=== PATIENT | female | born 1970 | race Caucasian/White ===

== ENCOUNTER 2019-06-18 06:55 | Day surgery (SDC) | payer BC ==
[2019-06-18] MEDS ORDERED: Lactated Ringers 1,000 ML IV SCH (07:30)
[2019-06-18] MEDS ORDERED: Propofol 200 MG/20 ML SDV ONE (07:49)
[2019-06-18] MEDS ORDERED: Midazolam 1 MG/ML 2 ML SDV ONE (07:50)
[2019-06-18] MEDS ORDERED: fentaNYL 100 MCG/2 ML SDV ONE (07:50)
--- NOTE | 2019-06-18 15:25 | OR ---
DATE OF PROCEDURE: 06/18/2019 PREOPERATIVE DIAGNOSIS: Colon cancer screening. POSTOPERATIVE DIAGNOSIS: Diverticulosis. PROCEDURE: Colonoscopy to the cecum. SURGEON: Chavez Laboy MD ANESTHESIA: IV anesthesia with monitored anesthesia care. INDICATION: This 49-year-old white female is referred for a colonoscopy for colon cancer screening. This is her first colonoscopic exam. I counseled her for the procedure including risks and alternatives, and she gave her informed consent to proceed. DESCRIPTION OF PROCEDURE: The patient was placed in the left lateral decubitus position. IV anesthesia was administered by the Anesthesia Service. Time-out was held. A rectal exam was performed, which was unremarkable. The flexible video Olympus colonoscope was introduced through her anus, up her rectum and out her colon all way to the cecum. Once the cecum was reached, the scope was slowly withdrawn examining the mucosa throughout. No mucosal abnormalities were noted until we reached the sigmoid colon. Here, we saw a single shallow diverticulum. There was no bleeding or inflammation associated with it. The scope was withdrawn further with no other lesions noted. The scope would not retroflex in the rectum. The scope was removed. She tolerated the procedure well. Repeat colonoscopy in 10 years or earlier p.erica Laboy MD /[id number] MTDNancy
== END 2019-06-18 10:00 | disposition home or self-care (01) ==
LOC: JP.SDS 06:55
PROVIDERS: ATTEND Surgery
DX: Z12.11 Encounter for screening for malignant neoplasm of colon (principal); K57.30 Diverticulosis of large intestine without perforation or abscess without bleeding; G47.00 Insomnia, unspecified
CPT/HCPCS: 45378; J2250; J2704; J3010; J7120

== ENCOUNTER 2021-06-25 07:54 | Day surgery (SDC) | payer OTHER ==
[~2021-06-25 07:54] MED LIST: Midazolam 1 MG/ML 2 ML SDV ONE; Propofol 200 MG/20 ML SDV ONE; fentaNYL 100 MCG/2 ML SDV ONE
[2021-06-25] MEDS ORDERED: Sodium Chloride 0.9% 1,000 ML IV SCH (08:30)
[2021-06-25] MEDS ORDERED: Lidocaine 1% w/EPINEPHrine 50 ML, Sodium Bicarbonate 5 MEQ in Sodium Chloride 0.9% 950 ML INJECT ONE (09:00)
[2021-06-25] MEDS ORDERED: Sodium Tetradecyl Sulfate 1% 20 MG/2 ML SDV ONE (09:02)
[2021-06-25] MEDS ORDERED: Lidocaine 1% with EPINEPHrine 1:100,000 50 ML MDV ONE ×2 (09:03→09:06)
[2021-06-25] MEDS ORDERED: Sodium Chloride 0.9% 10 ML ONE (09:03)
[2021-06-25] MEDS ORDERED: Propofol 200 MG/20 ML SDV ONE (09:35)
[2021-06-25] MEDS ORDERED: Sodium Chloride 0.9% 10 ML SDV ONE (09:45)
[2021-06-25] MEDS ORDERED: Lactated Ringers 1,000 ML ONE (09:47)
--- NOTE | 2021-06-27 21:45 | OR ---
DATE OF PROCEDURE: 06/25/2021 SURGEON: Amol Diaz MD PROCEDURES: 1. Radiofrequency ablation, left greater saphenous vein. 2. Sclerotherapy, left leg, multiple. 3. Sclerotherapy, right leg, multiple. 4. Compression wrap, right leg ([id number]). COMPLICATIONS: None. PROJ ENGINEER: None. ANESTHESIA: MAC. PREOPERATIVE DIAGNOSIS: Venous insufficiency with inflammation and pain. POSTOPERATIVE DIAGNOSIS: Venous insufficiency with inflammation and pain. RISKS: Risks, benefits, alternatives, and limitations including, but not limited to, infection, bleeding, DVT formation, chronic wounds, pain, pigmentation, and other risks not listed here were explained to the patient and they wished to proceed. PROCEDURE IN DETAIL: The patient was placed in the supine position. The right great GSV was accessed at the level around the ankle. This was accessed using a 21-gauge needle, then exchanged for a 35,000th wire, then exchanged for a 7-N[place] sheath. This could only be advanced few centimeters due to tortuosity, which was unforeseen. This was then moved up approximately 10 cm and that process was repeated. This was advanced with a probe to 3 cm from the saphenofemoral junction. Tumescent fluid injected in a 1 cm jacket around this and verified second and third time. The sheath and device were then removed. Direct pressure was held for 10 minutes. Dermabond was applied. Sclerotherapy was performed in the left and right legs using 0.33% sodium tetradactyl. This was drawn back to ensure intravascular injection only. No more than 2 mL injected in one location, 6 on the right, 4 on the left. Two-layer 2-stage compression wrapping was then performed in a distal proximal gradient. The patient tolerated procedure well. Amol Diaz MD /[id number]
== END 2021-06-25 11:39 | disposition home or self-care (01) ==
LOC: JP.SDS 07:54
PROVIDERS: ATTEND Surgery
DX: I83.12 Varicose veins of left lower extremity with inflammation (principal); I83.11 Varicose veins of right lower extremity with inflammation; I83.813 Varicose veins of bilateral lower extremities with pain; G47.00 Insomnia, unspecified
CPT/HCPCS: J1642; J2250; J2704; J3010; J7030; J7120